=== PATIENT | male | born 1985 | race Caucasian/White ===

== ENCOUNTER 2016-06-10 21:46 | Emergency (ER) | payer OTHER ==
[2016-06-10 22:05] VITALS: BP 148/83; PULSE 70; TEMP 98.3; BMI 44.0
--- NOTE | 2016-06-10 23:49 | PDOC ---
History of Present Illness - General Chief Complaint: Toothache Stated Complaint: TOOTHACHE Time Seen by Provider: 06/10/16 23:03 History Source: Patient Exam Limitations: No Limitations - History of Present Illness Initial Comments: 06/10/16 23:44 30yo Male patient presents to ED c/o tooth pain. Patient reports pain has been ongoing all day, took Ibuprofen at 5pm with no relief. Patient states he will go see his doctor tomorrow morning for follow up. Denies fever, n/v/d, or any other complaints at this time. Timing/Duration: other (2 days.) Severity: severe Modifying Factors: improves with: eating Associated Symptoms: reports: denies symptoms Past History - Travel Traveled outside of the country in the last 30 days: No Close contact w/someone who was outside of country & ill: No - Past Medical History Allergies/Adverse Reactions: Allergies Allergy/AdvReac Type Severity Reaction Status Date / Time azithromycin Allergy Mild Hives Verified 06/10/16 22:00 shellfish Allergy Swelling Uncoded 06/10/16 22:00 Home Medications: Ambulatory Orders Ibuprofen [Motrin -] 600 mg PO Q6H PRN #30 tablet 06/10/16 Tramadol HCl 50 mg PO Q6H PRN #8 tablet MDD 4 tabs 06/10/16 HTN: Yes - Psycho/Social/Smoking Cessation Hx Anxiety: No Suicidal Ideation: No Smoking History: Never smoked Hx Alcohol Use: No Substance Use Type: None Review of Systems - Review of Systems Able to Perform ROS?: Yes Is the patient limited [place] proficient: No Constitutional: No: Fever HEENTM: Yes: Other (Dental Pain). No: Throat Pain, Throat Swelling, Mouth Pain Respiratory: No: Shortness of Breath Cardiac (ROS): No: Chest Pain ABD/GI: No: Nausea, Vomiting All Other Systems: Reviewed and Negative *Physical Exam - Vital Signs Last Vital Signs Temp Pulse Resp BP Pulse Ox 98.3 F 70 16 148/83 97 06/10/16 22:01 06/10/16 22:01 06/10/16 22:01 06/10/16 22:01 06/10/16 22:01 - Physical Exam General Appearance: Yes: Nourished, Appropriately Dressed HEENT: positive: EOMI, WILMA, Normal ENT Inspection, Normal Voice, Symmetrical, Pharynx Normal, Other (Tooth decay located between 2nd Bicuspid and 1st molar # 29 and 30.) Neck: positive: Trachea midline, Supple Respiratory/Chest: positive: Lungs Clear, Normal Breath Sounds Cardiovascular: positive: Regular Rhythm, Regular Rate Extremity: positive: Normal Capillary Refill, Normal Inspection, Normal Range of Motion Integumentary: positive: Normal Color, Dry, Warm 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 TAKE MEDICATIONS PRESCRIBED. DO NOT DRIVE, DRINK ALCOHOL, OR OPERATE HEAVY MACHINERY WHILE TAKING TRAMADOL. GARGLE WITH WARM SALT WATER. MOTRIN FOR MILD PAIN, TRAMADOL FOR SEVERE PAIN NEEDED. Print Language: [place]
== END 2016-06-11 | disposition home or self-care (01) ==
LOC: JER 21:46
DX: K02.9 Dental caries, unspecified (principal); I10 Essential (primary) hypertension
CPT/HCPCS: 99282-25